=== PATIENT | female | born 1975 | race Caucasian/White ===

== ENCOUNTER 2017-03-23 23:28 | Emergency (ER) | payer OTHER ==
[2017-03-23] MEDS: LIDOCAINE WITH 8.4% SOD BICARB 3 ML DISP.SYRIN. IJ (23:48)
== END 2017-03-24 00:22 | disposition home or self-care (01) ==
LOC: ER 23:28
DX: S61.217A Laceration without foreign body of left little finger without damage to nail, initial encounter (principal); Z88.7 Allergy status to serum and vaccine; W25.XXXA Contact with sharp glass, initial encounter; Y93.89 Activity, other specified; Y99.8 Other external cause status; Y92.89 Other specified places as the place of occurrence of the external cause
CPT/HCPCS: 12002; 99283-25

== ENCOUNTER → 2019-10-30 | Outpatient (CLI) | payer BC ==
[2017-03-23 23:30] VITALS: BP 137/78
[~2019-10-30] MED LIST: CEPH500C PO; TRAM50TA PO
== END ==
LOC: LAB 14:59
PROVIDERS: ATTEND Orthopaedic Surgery
DX: Z20.828 Contact with and (suspected) exposure to other viral communicable diseases (principal)
CPT/HCPCS: U0003-CS

== ENCOUNTER 2019-11-03 08:08 | Day surgery (SDC) | payer BC ==
[~2019-11-03] VITALS: Ht 162.6 cm; Wt 94.3 kg
[~2019-11-03 08:08] MED LIST changes: +BUPIVACAINE MPF 0.25% 30 ML VIAL. ONE; +EPINEPHrine VIAL 30 MG/30 ML VIAL ONE
[2019-11-03] MEDS ORDERED: IV RINGERS,LACTATED 1000ML 1,000 ML IV SCH (08:44)
[2019-11-03] MEDS ORDERED: HYDROmorphone 2 MG/ML VIAL IV PRN (08:45)
[2019-11-03] MEDS ORDERED: PROCHLORPERAZINE 10 MG/2 ML VIAL. IV PRN (08:45)
[2019-11-03] MEDS ORDERED: fentaNYL PF VIAL 100 MCG/2 ML VIAL IV PRN (08:45)
[2019-11-03] MEDS ORDERED: ONDANSETRON PF 4 MG/2 ML VIAL. IV PRN (08:45)
[2019-11-03] MEDS ORDERED: LIDOCAINE 1% PF 2 ML VIAL. ID PRN (08:45)
[2019-11-03] MEDS ORDERED: DULO60CA6 PO (08:52)
[2019-11-03] MEDS ORDERED: PROPOFOL 10 MG/ML (20ML) VIAL. IV ONE (08:54)
[2019-11-03] MEDS ORDERED: LIDOCAINE 2% PF 5 ML VIAL. ONE (08:54)
[2019-11-03] MEDS ORDERED: fentaNYL PF VIAL 100 MCG/2 ML VIAL ONE ×2 (08:55→11:30)
[2019-11-03] MEDS ORDERED: MIDAZOLAM HCL/PF 2 MG/2 ML VIAL. ONE (08:55)
[2019-11-03] MEDS ORDERED: ONDANSETRON PF 4 MG/2 ML VIAL. ONE (10:20)
[2019-11-03] MEDS ORDERED: DEXAMETHASONE SOD PHOS 4 MG/ML VIAL ONE (10:20)
[2019-11-03] MEDS ORDERED: KETOROLAC 30 MG/ML VIAL. ONE (10:47)
[2019-11-03] MEDS ORDERED: ceFAZolin 2GM PREMIX 2 GM/50 ML BAG IV ONE (11:00)
[2019-11-03] MEDS ORDERED: SEVOFLURANE 61 TO 120 MINUTES. IH ONE (11:00)
--- NOTE | 2019-11-03 11:06 | PDOC4 ---
Operative Note Operative Note Date of Procedure: November 03, 2019 Preoperative Diagnosis: right knee pain, chondromalacia Postoperative Diagnosis: 1. 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 Other meniscus derangements, unspecified lateral meniscus, right knee Diagnosis Code M23.300 4. 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 Chondromalacia, right knee, Diagnosis Code M94.261 Procedures Performed: right knee arthroscopy, surgical, with lateral meniscectomy including meniscal shaving, including debridement/shaving of articular cartilage (chondroplasty). Meniscectomy and chondroplasty were both performed in the lateral compartment. Chondroplasty was performed with shaver in the medial compartment. Chondroplasty was performed with the shaver in the patellofemoral compartment. Surgeon: Love Fontenot MD Glass Setter: MARIAMA Santos Anesthesia: General Estimated Blood Loss: 10 mL Specimens: none Drains: none Complications: none Tourniquet time: 28 minutes at 300 mm Hg Indications for Procedure: The patient is a 43-year-old with right knee pain, unrelieved with nonoperative treatment. Exam is consistent with a meniscus tear and chondromalacia, and her MRI which was 0.3 Malissa was difficult to tell if there was a small meniscus tear. We talked about the risks and benefits of proceeding with an arthroscopic procedure. We talked about potential risks of ongoing pain, progressive arthritis, bleeding, infection, blood clots, or other potential surgical or anesthetic complications. All of the patient's questions about surgery were answered and they desired to proceed. Written consent was obtained. Description of Operation: The patient was identified in the preoperative holding area. The correct right knee was marked by me. The patient was taken to the operating room, where a general anesthetic was used. Preoperative antibiotics were given intravenously. A time-out procedure was performed. A tourniquet was placed on the upper thigh. Local anesthetic 20 mL of 0.25% bupivacaine was injected using sterile technique into the knee joint. The limb was prepared circumferentially with ChloraPrep solution and sterile waterproof arthroscopy drapes were applied. The limb was exsanguinated with an Esmarch bandage and the tourniquet was inflated. Lateral and medial arthroscopy portals were established. The medial meniscus was normal and stable to probing.The medial tibiofemoral joint showed chondromalacia Outerbridge grade II, so a shaving chondroplasty was performed removing loose unstable fragments of articular cartilage.The intercondylar notch was free of loose bodies, and the ACL was intact. 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 I performed a partial meniscectomy with basket forceps and the motorized shaver, removing the anterior horn tear, tapering the resection into the middle one third of the meniscus, and tapering the resection into the posterior one third of the meniscus to a more normal posterior lateral meniscal configuration. This discoid lateral meniscus tear is likely the cause of the majority of the symptoms. The lateral articular surfaces showed chondromalacia Outerbridge grade II, so a shaving chondroplasty was performed removing loose unstable fragments of articular cartilage. The patellofemoral joint showed chondromalacia Outerbridge grade III, and a shaving chondroplasty was performed removing unstable fragments of cartilage with the shaver. The suprapatellar pouch, medial and lateral gutters were free of loose bodies. Copious irrigation was used to drain all meniscal and chondral fragments, and the knee was drained of fluid. The portals were closed with #3-0 Prolene interrupted sutures. Additional local anesthetic, 40 mL of 0.25% bupivacaine with epinephrine was injected. A bulky sterile dressing was applied and the tourniquet was released. Needle and sponge counts were correct and there were no apparent complications. LOVE FONTENOT MD Nov 03, 2019 11:06
[2019-11-03] MEDS ORDERED: MORPHINE SULFATE 2 MG/ML VIAL. ONE (11:31)
[2019-11-03] MEDS: fentaNYL PF VIAL 100 MCG/2 ML VIAL IV PRN ×2 (11:39→12:14)
[2019-11-03] MEDS: MORPHINE SULFATE 2 MG/ML VIAL. IV PRN ×2 (11:40→12:02)
[2019-11-03] MEDS ORDERED: HYDR-2765 PO (11:53)
[2019-11-03] MEDS ORDERED: PROM25TA10 PO (11:54)
[2019-11-03] MEDS ORDERED: ASPI325T11 PO (11:55)
[2019-11-03 12:06] VITALS: BP 131/64
[2019-11-03] MEDS ORDERED: HYDROcodone/APAP 7.5/325MG 1 TAB TABLET PO PRN ×2 (12:15)
== END 2019-11-03 13:10 | disposition home or self-care (01) ==
LOC: SURG 08:08
PROVIDERS: ATTEND Orthopaedic Surgery
DX: M23.300 Other meniscus derangements, unspecified lateral meniscus, right knee (principal); M94.261 Chondromalacia, right knee; Q68.6 Discoid meniscus; Z88.8 Allergy status to other drugs, medicaments and biological substances; Z79.899 Other long term (current) drug therapy; Z98.890 Other specified postprocedural states
CPT/HCPCS: 29881; A7015; C1782; J0171; J0690; J0780; J1100; J1885; J2270; J2405; J2704; J3010; J3490; J2250

== ENCOUNTER → 2020-06-20 | Outpatient (CLI) | payer BC ==
[~2020-06-20] MED LIST changes: +ASPI325T11 PO; -BUPIVACAINE MPF 0.25% 30 ML VIAL. ONE; +DULO60CA6 PO; -EPINEPHrine VIAL 30 MG/30 ML VIAL ONE; +HYDR-2765 PO; +PROM25TA10 PO
--- NOTE | 2020-06-20 16:56 | KCIC ---
EXAMINATION: MRI RIGHT KNEE WITHOUT IV CONTRAST CLINICAL HISTORY: Medial and posterior right knee pain following injury to 04/07/2020, concern for medi al meniscus tear. History of meniscal repair November 2019. TECHNIQUE: Multiplanar multisequential images obtained through the knee without intravenous contrast. COMPARISON: Right knee radiographs 06/14/2020 FINDINGS: MENISCI: Medial Meniscus: Intact. Lateral Meniscus: Postoperative changes with minimal residual meniscal tissue visualized in the regio n of the body and anterior horn, compatible with large partial meniscectomy. No definite recurrent te ar, though evaluation is limited without any prior imaging for comparison. LIGAMENTS: ACL: Intact PCL: Intact MCL: Intact LCL Complex: Intact CARTILAGE: Medial Femoral Condyle: Normal Medial Tibial Plateau: Normal Lateral Femoral Condyle: Large area(s) of full thickness cartilage loss/fissuring with subchondral ma rrow reactive/cystic changes in the weightbearing portion of the condyle Lateral Tibial Plateau: Large area(s) of full thickness cartilage loss/fissuring Patella: Small areas(s) of predominantly low grade (less than 50% thickness) cartilage loss and or fi ssuring with smaller area(s) of high grade (greater than 50% thickness) cartilage loss and or fissuri ng Trochlea: Normal TENDONS: Distal quadriceps and patellar tendons intact. Popliteus tendon intact. BONES AND MARROW: No evidence of acute fracture or suspicious marrow replacing process. MUSCLES: Muscle bulk and signal intensity within normal limits. JOINT FLUID AND SYNOVIUM: Moderate joint effusion. No synovitis. No Gonzales's cyst. IMPRESSION: Moderate to severe full-thickness chondral wear in the lateral compartment. Postoperative changes in the lateral meniscus without definitive evidence of recurrent tear on limite d evaluation as described. No medial meniscus tear or acute ligamentous injury. Electronically signed by: Narendra Adames DO (06/20/2020 4:53 PM) [id number]
== END ==
LOC: KCIC MRI 15:09
PROVIDERS: ATTEND Physician Assistant
DX: S83.241A Other tear of medial meniscus, current injury, right knee, initial encounter (principal); X58.XXXA Exposure to other specified factors, initial encounter; Y93.89 Activity, other specified; Y92.89 Other specified places as the place of occurrence of the external cause; Y99.8 Other external cause status
CPT/HCPCS: 73721

== ENCOUNTER → 2021-01-05 | Outpatient (CLI) | payer BC, OTHER ==
[~2021-01-05] MED LIST changes: -DULO60CA6 PO; +DULO60CA7 PO
--- NOTE | 2021-01-05 17:26 | KCIC ---
CT SCREENING FOR CORONARY ARTERY History: Reason: MIXED HYPERLIPIDEMIA / Spl. Instructions: / History: Paternal family hx. [place], past s moker of 20 yrs., quit 4 yrs. ago. Technique: With retrospective electrocardiogram gating axial reconstructed noncontrast images of the chest at the level of the coronary arteries was performed. Images were post processed on workstation and calcium score calculated using the modified Agatston Janowitz protocol. Exposure: One or more of the following individualized dose reduction techniques were utilized for thi s examination: 1. Automated exposure control 2. Adjustment of the mA and/or kV according to patient size 3. Use of iterative reconstruction technique. Comparison: None Findings: Total coronary calcium score is 0. There is no plaque burden and low cardiovascular disease risk. This is based on the calcium score of 0 of the left main coronary artery, 0 of the left anteri or descending artery, score of 0 of the left circumflex artery and score of 0 of the right coronary a rtery. Noncoronary findings: Calcified left hilar lymph nodes and calcified pulmonary nodules, likely prior granulomatous disease. 3 mm left lower lobe pulmonary nodule (series 4 image 42). IMPRESSION: 1. Calcium score 0. Low cardiovascular disease risk. 2. Small pulmonary nodule. Recommend one-year follow-up chest CT without contrast if high risk. Electronically signed by: Meek Mcarthur DO (01/05/2021 5:24 PM) [id number]
== END ==
LOC: KCIC CT 15:06
PROVIDERS: ATTEND Nurse Practitioner Family
DX: I25.10 Atherosclerotic heart disease of native coronary artery without angina pectoris (principal); R91.1 Solitary pulmonary nodule; E78.2 Mixed hyperlipidemia
CPT/HCPCS: 75571